=== PATIENT | male | born 1955 | race Caucasian/White ===

== ENCOUNTER 2023-12-11 00:37 | Day surgery (SDC) | payer OTHER, SELFPAY ==
[2023-12-05 10:22] VITALS: BMI 37.0
--- NOTE | 2023-12-05 10:27 | PC.NURSE ---
Report to the Outpatient Waiting Room, entrance under the green pavilion located off [facility], at time _1000_ on date _[phone]_. Planned Procedure Time: _1200_.? Time changes happen often and if your time is changed the preop area will call you the afternoon before. - You and your visitor will be asked to self-screen and do not enter if you have any COVID symptoms. Please call surgeon if you need to reschedule. - A mask is optional within the hospital at this time. Patients may have clear liquids (water, carbonated beverages, clear teas, apple juice) until 3 hours prior to surgery with a maximum of 20 ounces. - No food from midnight until time of surgery and no smoking Take only the following medications with a SIP of water on the morning of surgery: __None DO NOT STOP ANY OF YOUR OTHER PRESCRIPTION MEDICATIONS PRIOR TO SURGERY EXCEPT THE FOLLOWING Medications to discontinue per physician ___Supplements Date to take last lhae___[id number] Please no make-up, nail lithuanian, hairspray, perfume, deodorant, or body powder the day of surgery.? No jewelry (including any body piercings) or valuables the day of surgery, leave them at home.? Please take a shower or bath the night before, or the morning of, surgery with an antibacterial soap.? Wear comfortable, loose fitting clothing.? - Jewelry must be removed prior to entering the operating room.? Rings and piercings that are not removed may be cut off. - The hospital will not accept responsibility for valuables.? - Please leave all valuables, including medications, at home the day of surgery. If you are going home after surgery, a licensed local tanker truck driver must drive you home.? - NO public transportation without another adult if you receive anesthesia. - We recommend that an adult stay with you for 24 hours following discharge. - We also recommend that you do not drive, make important decision, drink alcoholic beverages, or take any drugs that were not prescribed by your health care provider for at least 24 hours after your discharge time. Follow any additional instructions given to you from your surgeon. Telephone instructions given to __Davd__and asked if any additional questions and then verbalized understanding. Patient advised to call surgeon office or pre surgery nurse liaison [phone] if any additional questions
[2023-12-11 10:00] VITALS: BP 142/77; PULSE 68; RESP 14; TEMP 36.4; O2SAT 97
[2023-12-11 10:21] LABS: Glucose Point of Care 142 mg/dl (65-105)
[2023-12-11] MEDS: LACTATED RINGERS 1,000 ML 30 ML IV CONT (10:30)
--- NOTE | 2023-12-11 10:36 | WPDANESEPPF ---
Anes - Initial Pre Proc Eval Procedure: Operation Date: 12/11/23 12:00 Proposed Procedures p Excisional Biopsy Right Posterior Neck Sebaceous Cyst - Maria M Lewis MD Date/Time: 12/11/23 10:36 Surgeon: Maria M Lewis MD Pre Op Diagnosis: Right Posterior Sebaceous Cyst Patient Data Age: 68 Gender: M Height: 1.8 m Weight: 121.9 kg Last Vital Signs Temp 36.4 C L 12/11/23 10:00 Pulse 68 12/11/23 10:00 Resp 14 12/11/23 10:00 BP 142/77 H 12/11/23 10:00 Pulse Ox 97 12/11/23 10:00 O2 Del Method Room Air 12/11/23 10:00 Allergies Allergy/AdvReac Type Severity Reaction Status Date / Time No Known Allergies Allergy Verified 12/11/23 10:32 Home Medications Medication Instructions Recorded Confirmed Type glimepiride 4 mg tablet 4 mg PO QAM #90 tabs 01/09/23 12/11/23 Rx dapagliflozin propanediol 10 mg See Rx Instructions .Route 06/20/23 12/11/23 Rx tablet (Farxiga) .COMPLEX #90 tabs berberine chloride 500 mg capsule 500 mg PO HS 12/05/23 12/11/23 History cinnamon bark 500 mg capsule 500 mg PO DAILY 12/05/23 12/11/23 History (Cinnamon) lisinopril 10 mg tablet See Rx Instructions .Route 12/07/23 12/11/23 Rx .COMPLEX #90 tabs metformin 500 mg tablet 1,000 mg PO BID #60 tabs 12/11/23 12/11/23 Rx tadalafil 10 mg tablet (Cialis) 20 mg PO DAILY PRN sexual activity 12/11/23 12/11/23 Rx #14 tabs Laboratory Tests 12/11/23 10:17 POC Capillary Glucose 142 H mg/dl (65-105) Patient hx anesthesia problems: none Family hx anesthesia problems: none Results Review: All pre-operative results and documents have been reviewed as part of the pre-operative evaluation. [facility] Past Medical History Medical History Benign essential HTN DM2 (diabetes mellitus, type 2) Mixed hyperlipidemia Family History Family History Mother Patient's mother is in good health Sibling Patient's sister is in good health Father Family history of Alzheimer's disease, Onset Age: 79 Patient's father is Social History Social History Social History: Smoking status: Never smoker Second hand tobacco smoke exposure: No Alcohol intake: never Substance use: never Substance use type: does not use Do You Feel Safe in your Home?: Yes Lack of Transportation: No Lack of Food: Never True Current Housing: I Have Housing Concerned About Future Housing: No Difficulty Paying Gas/Electric Bills: No Difficulty Paying for Meds: No Currently Unemployed: YES Education: High School Diploma/GED Difficulty w/ Childcare or Family Care: No Living arrangements: with family Occupation/Education: retired Additional occupation/education comments: [employer] Gender identity (if verbalized by the patient): Male Sexual Orientation (if Verbalized by the Patient): Straight or Heterosexual Spiritual care concerns: No Anes - Eval Final PreProcedure Day of Procedure 12/11/23 10:36 Patient weight: obese Heart: regular rate and rhythm Lungs: clear to auscultation Airway: Mallampati scale class II Neurological: alert and oriented Last oral intake: >/= 8 hours ASA classification: III Emergent: no Anesthetic plan: proceed Anesthesia type and monitoring: general GIVS and standard monitoring Results Review: All pre-operative results and documents have been reviewed as part of the pre-operative evaluation. Informed Consent: The patient's anesthetic plan and its attendant risks and benefits were discussed with the patient/family/POA. Questions were solicited and answers provided to the satisfaction of the patient/family/POA.
--- NOTE | 2023-12-11 10:57 | WPDHPUPDATE1 ---
History and Physical Update Update Date/Time: 12/11/23 10:57 History and Physical has been reviewed, including an updated exam of the patient. There are NO changes in the patient's condition. Risks, benefits, and alternatives have been discussed and questions answered. Patient agrees to proceed with procedure.
[2023-12-11] MEDS: ceFAZolin 3 GM/D5W 100 ML 100 ML IVPB (11:53)
[2023-12-11] MEDS: BUPIVACAINE/EPINEPHRINE 0.5% 10 ML VIAL 30 ML INFILTRATE (12:08)
[2023-12-11 12:47] VITALS: BP 142/85; PULSE 87; RESP 16; O2SAT 95
[2023-12-11 13:14] LABS: Glucose Point of Care 128 mg/dl (65-105)
--- NOTE | 2023-12-11 13:14 | W.PM.PROC2 ---
Procedure Note - Detailed Date of Procedure 12/11/23 Pre-op Diagnosis Right Posterior Neck Sebaceous Cyst Post-op Diagnosis Same Procedure Performed Excisional biopsy right posterior neck sebaceous cyst measuring approximately 3.5 x 2 cm Surgeon Maria M Lewis MD Anesthesia MAC and Local Indications 68-year-old male presenting to the office with chronic draining cystic mass of the right posterior neck. Patient is status post I and D for infection a few months ago. Findings 3.5 x 2 cm cystic mass right posterior neck consistent with sebaceous cyst Description of Procedure The patient was taken and placed in the lateral position. After adequate induction of MAC anesthesia, the patient prepped and draped in the normal sterile fashion. A time-out was then done to verify the patient's identity, as well as the procedure being performed. I began by making an elliptical incision around this cystic mass to encompass the previous scar. This incision was taken down through the dermis into the subcutaneous tissue. The cystic mass was noted inferior to the previous scar and a counter incision was made to allow for complete excision. This mass was noted within the subcutaneous tissue and was most consistent with a sebaceous cyst. This mass measured approximately 3.5 x 2 cm. Once completely excised, no other pathology was seen within the cavity. Further local anesthetic was placed. Hemostasis was gained with the Bovie cautery. The cavity was irrigated with normal saline. I then closed the subcutaneous tissue with interrupted 3-0 Vicryl sutures. The skin was closed with 4-0 Monocryl subcuticular sutures. The patient tolerated the procedure well and was alert and awake postoperatively. He will be sent to the recovery room in stable condition. Estimated Blood Loss 10 Drains No Packing No Pathology Yes Complications No immediate complications Condition Stable Disposition PACU [facility] Billing Surgery - Charge Forward: Surgery Billing
[2023-12-11 13:17] VITALS: BP 129/76; PULSE 74; RESP 16; O2SAT 98
[2023-12-11 13:47] VITALS: BP 125/79; PULSE 70; RESP 16
== END 2023-12-11 13:58 | disposition home or self-care (01) ==
PROVIDERS: PCP Family Medicine; Visit Provider Surgery
PROC: (CPT 11426; principal; 2023-12-11 12:00)
DX: L72.0 Epidermal cyst (principal); I10 Essential (primary) hypertension; E11.42 Type 2 diabetes mellitus with diabetic polyneuropathy; E78.2 Mixed hyperlipidemia; E66.9 Obesity, unspecified; Z68.37 Body mass index [BMI] 37.0-37.9, adult; Z79.84 Long term (current) use of oral hypoglycemic drugs
CPT/HCPCS: 11426; 12042; 82948; 88305; J0690; J2704; J3010; J7120

== ENCOUNTER 2024-01-23 14:30 | Outpatient (RCR) | payer OTHER, SELFPAY ==
[2023-11-07 08:17] VITALS: BMI 37.6
[2023-11-07 09:15] VITALS: BMI 37.6
[2024-01-23 14:33] VITALS: BMI 37.6
== END 2024-02-05 10:55 | disposition home or self-care (01) ==
LOC: ANHDMC 14:30
PROVIDERS: PCP Family Medicine; Visit Provider Physician Assistant
DX: E11.9 Type 2 diabetes mellitus without complications (principal); E66.09 Other obesity due to excess calories; Z71.3 Dietary counseling and surveillance
CPT/HCPCS: 97802; 97803